=== PATIENT | male | born 1935 | race Caucasian/White ===

== ENCOUNTER 2017-04-15 11:29 | Inpatient (IN) | payer OTHER, MEDICARE ==
[~2017-04-15] VITALS: Ht 190.5 cm; Wt 114.0 kg
[~2017-04-15 11:29] MED LIST: ALPH200C3 PO; ASPI81 PO; BRIM0.155 EACH EYE; CARV12.52 PO; CO Q200C; COBA1000 SL; HYDR-2768 PO; LOSA25TA31 PO; LUTE1CAP5; LYCO10CA PO; OMEP20CA5 PO; PRAV20 PO; REST0.05 EACH EYE; SELE200T18 PO; SPIRCAP INH; TAMS0.4C67 PO; VENTAER INH
[2017-04-15 11:30] VITALS: BP 161/89; PULSE 109; RESP 24; TEMP 98.2; O2SAT 93
[2017-04-15] MEDS ORDERED: SODIUM CHLOR 0.9% 1000 ML INJ 1,000 ML IV ONE ×4 (11:45→13:00)
[2017-04-15] MEDS ORDERED: ACETAMINOPHEN 325 MG TAB PO ONE (11:45)
--- NOTE | 2017-04-15 11:50 | PD ---
HPI Chief Complaint: fever Time Seen by Provider: 11:47 Travel History International Travel<30 days: No Contact w/Intl Traveler<30days: No History of Present Illness HPI 81 YO M with PMH of HTN, GERD, BPH, AV block s/p pacemaker insertion presents to the the ED via EMS for evaluation of 3 day history of hematuria. Patient states that upon waking today he felt chills and began to shake which prompted him to call EMS. He denies CP, cough, SOB, abdominal pain, N/V. EMS reports oral temp of 102+ on scene. PCP Dr. Melo. [facility] Past Medical History Arthritis: Yes Asthma: No Blood Disorders: No Heart Rhythm Problems: No Cancer: No Cardiovascular Problems: Yes High Cholesterol: Yes Chemotherapy: No Chest Pain: No Congestive Heart Failure: No COPD: No Diabetes: No Diminished Hearing: No Endocrine: No Gastrointestinal Disorders: No GERD: Yes Glaucoma: Yes Genitourinary: Yes Hepatitis: No Hiatal Hernia: No Hypertension: Yes Immune Disorder: No Implanted Vascular Access Dvce: Yes Kidney Stones: No Musculoskeletal: Yes Neurologic: No Psychiatric: No Reproductive: No Respiratory: No (PNEUMINIA IN THE PAST) Myocardial Infarction: No Radiation Therapy: No Renal Failure: No Sleep Apnea: No Thyroid Disease: No Ulcer: No Past Surgical History Abdominal Surgery: No AICD: No Appendectomy: No Arteriovenous Shunt: No Body Medical Devices: PACEMAKER 10/10/13 Cardiac Surgery: No Cholecystectomy: No Ear Surgery: No Endocrine Surgery: No Eye Surgery: Yes (CATARACT RIGHT EYE, RIGHT EYE VITRECTOMY) Genitourinary Surgery: No Gynecologic Surgery: No Insulin Pump: No Joint Replacement: Yes (LEFT KNEE, LEFT HIP, RIGHT HIP, BILATERAL ROTATOR CUFF) Oral Surgery: No Pacemaker: No Thoracic Surgery: No Other Surgery: Yes (BILATERAL BUNIONS) Social History Alcohol Use: Yes (2-4 BEERS PER DAY) Tobacco Use: No (QUIT 1981) Substance Use: No Allergies-Medications (Allergen,Severity, Reaction): Coded Allergies: aspirin (Unverified Allergy, Severe, Anaphylaxis, 03/13/17) oxycodone (Unverified Allergy, Severe, Anaphylaxis, 03/13/17) penicillin G (Unverified Allergy, Severe, SWELLING, 03/13/17) morphine (Unverified Adverse Reaction, Severe, VOMITING, 03/13/17) SICK WITH MS PUMP Reported Meds & Prescriptions Reported Meds & Active Scripts Active Reported Ventolin Hfa 18 GM Inh (Albuterol Sulfate) 90 Mcg/Act Aer 2 Puff INH Q6H PRN Spiriva Handihaler (Tiotropium Inh) 18 Mcg Cap 18 Mcg INH DAILY 1 capsule = 18 mcg DO NOT SWALLOW CAPS Brimonidine Opth Drops (Brimonidine Tartrate) 0.2% Soln 1 Drop EACH EYE BID Aspirin Adult Low Strength (Aspirin) 81 Mg Tabdr 81 Mg PO DAILY Pravastatin 20 Mg Tab 20 Mg PO DAILY Tamsulosin (Tamsulosin HCl) 0.4 Mg Cap 0.4 Mg PO HS Coreg (Carvedilol) 12.5 Mg Tab 12.5 Mg PO BID Cozaar (Losartan Potassium) 50 Mg Tab 50 Mg PO DAILY Hydrochlorothiazide 25 Mg Tab 25 Mg PO DAILY Omeprazole 20 Mg Tab 20 Mg PO DAILY Review of Systems Except as stated in HPI: all other systems reviewed are Neg Physical Exam Narrative GENERAL: Well-nourished, well-developed obese white male, rigors, no acute distress. SKIN: Focused skin assessment warm/dry. HEAD: Normocephalic. EYES: No scleral icterus. No injection or drainage. NECK: Supple, trachea midline. No JVD or lymphadenopathy. CARDIOVASCULAR: Regular rate and rhythm without murmurs, gallops, or rubs. RESPIRATORY: Breath sounds clear and equal bilaterally. No accessory muscle use. GASTROINTESTINAL: Abdomen soft, non-tender, nondistended. No suprapubic tenderness. MUSCULOSKELETAL: No cyanosis, or edema. BACK: Nontender without obvious deformity. No CVA tenderness. Data Data Last Documented VS Vital Signs Date Time Temp Pulse Resp B/P (MAP) Pulse Ox O2 Delivery O2 Flow Rate FiO2 04/15/17 12:02 103.8 107 25 164/76 (105) 93 Nasal Cannula 2.00 Orders Orders Complete Blood Count With Diff (04/15/17 11:45) Comprehensive Metabolic Panel (04/15/17 11:45) Prothrombin Time / Inr (Pt) (04/15/17 11:45) Act Partial Throm Time (Ptt) (04/15/17 11:45) Lactic Acid Sepsis Protocol (04/15/17 11:45) Urinalysis - C+S If Indicated (04/15/17 11:45) Blood Culture (04/15/17 11:45) Chest, Single Ap (04/15/17 11:45) Blood Glucose (04/15/17 11:45) Ecg Monitoring (04/15/17 11:45) Iv Access Insert/Monitor (04/15/17 11:45) Oximetry (04/15/17 11:45) Oxygen Administration (04/15/17 11:45) Acetaminophen (Tylenol) (04/15/17 11:45) Sodium Chlor 0.9% 1000 Ml Inj (Ns 1000 M (04/15/17 11:45) Urine Culture (04/15/17 12:15) Aztreonam Inj (Azactam Inj) (04/15/17 13:00) Gentamicin Inj (Gentamicin Inj) (04/15/17 13:00) Sodium Chlor 0.9% 1000 Ml Inj (Ns 1000 M (04/15/17 13:00) Sodium Chlor 0.9% 1000 Ml Inj (Ns 1000 M (04/15/17 13:00) Sodium Chlor 0.9% 1000 Ml Inj (Ns 1000 M (04/15/17 13:00) Electrocardiogram (04/15/17 11:53) Admit Order (Ed Use Only) (04/15/17 14:12) Albuterol Hfa Inh (Proair Hfa Inh) (04/15/17 14:15) Aspirin Ec (Ecotrin Ec) (04/16/17 09:00) Brimonidine 0.2% Opth Soln (Alphagan 0.2 (04/15/17 21:00) Carvedilol (Coreg) (04/15/17 21:00) Hydrochlorothiazide (Hydrodiuril) (04/16/17 09:00) Losartan (Cozaar) (04/16/17 09:00) Pravastatin (Pravachol) (04/16/17 09:00) Tamsulosin (Flomax) (04/15/17 21:00) Tiotropium Inh (Spiriva Inh) (04/16/17 09:00) (Nf) Omeprazole (04/16/17 09:00) Labs Laboratory Tests Test 04/15/17 11:50 04/15/17 12:15 White Blood Count 8.5 TH/MM3 Red Blood Count 4.10 MIL/MM3 Hemoglobin 14.3 GM/DL Hematocrit 42.4 % Mean Corpuscular Volume 103.5 FL Mean Corpuscular Hemoglobin 34.8 PG Mean Corpuscular Hemoglobin Concent 33.6 % Red Cell Distribution Width 13.3 % Platelet Count 163 TH/MM3 Mean Platelet Volume 7.9 FL Neutrophils (%) (Auto) 94.7 % Lymphocytes (%) (Auto) 4.0 % Monocytes (%) (Auto) 1.0 % Eosinophils (%) (Auto) 0.2 % Basophils (%) (Auto) 0.1 % Neutrophils # (Auto) 8.1 TH/MM3 Lymphocytes # (Auto) 0.3 TH/MM3 Monocytes # (Auto) 0.1 TH/MM3 Eosinophils # (Auto) 0.0 TH/MM3 Basophils # (Auto) 0.0 TH/MM3 CBC Comment DIFF FINAL Differential Comment Prothrombin Time 10.7 SEC Prothromb Time International Ratio 1.0 RATIO Activated Partial Thromboplast Time 22.4 SEC Blood Urea Nitrogen 13 MG/DL Creatinine 1.18 MG/DL Random Glucose 112 MG/DL Total Protein 7.0 GM/DL Albumin 3.5 GM/DL Calcium Level 8.9 MG/DL Alkaline Phosphatase 78 U/L Aspartate Amino Transf (AST/SGOT) 68 U/L Alanine Aminotransferase (ALT/SGPT) 60 U/L Total Bilirubin 1.7 MG/DL Sodium Level 139 MEQ/L Potassium Level 3.6 MEQ/L Chloride Level 104 MEQ/L Carbon Dioxide Level 27.6 MEQ/L Anion Gap 7 MEQ/L Estimat Glomerular Filtration Rate 59 ML/MIN Lactic Acid Level 2.4 mmol/L Urine Color BROWN Urine Turbidity CLOUDY Urine pH 5.5 Urine Specific [place] 1.018 Urine Protein 100 mg/dL Urine Glucose (UA) NEG mg/dL Urine Ketones TRACE mg/dL Urine Occult Blood LARGE Urine Nitrite NEG Urine Bilirubin NEG Urine Urobilinogen LESS THAN 2.0 MG/DL Urine Leukocyte Esterase MOD Urine RBC /hpf Urine WBC 83 /hpf Urine WBC Clumps FEW Urine Bacteria MANY /hpf Microscopic Urinalysis Comment CULTURE INDICATED MDM Medical Decision Making Medical Screen Exam Complete: Yes Emergency Medical Condition: Yes Differential Diagnosis cystitis versus pyelonephritis versus urosepsis versus Narrative Course 81 YO M with PMH of HTN, GERD, BPH s/p TURP, AV block s/p pacemaker insertion presents to the the ED via EMS for evaluation of 3 day history of hematuria. Patient states that upon waking today he felt chills and began to shake which prompted him to call EMS. He denies CP, cough, SOB, abdominal pain, N/V. EMS reports oral temp of 102+ on scene. PCP Dr. Melo. Oral temp 103.8, pulse 107, respiratory rate 25, 93% on 2 L normal nasal cannula on presentation. Patient has rigors but the exam is otherwise unremarkable. Fluid resuscitation is initiated. Patient was administered by mouth Tylenol. EKG rate 98, paced rhythm. No acute ST changes. Reviewed by Dr. Miner. CXR: No acute cardio pulmonary disease per radiology read. CMP: WBCs 8.5, neutrophil predominant with bands. INR 1.0. BUN 13, creatinine 1.18. Bilirubin is 1.7 and AST is 68 but there is no abdominal pain on the exam. Lactic acid 2.4. UA: Brown, cloudy, moderate leukocyte esterase, 83 WBC's, few clumps, many bacteria. Patient was administered IV gentamicin and aztreonam. On recheck temperature 98.7, pulse 100, BP 134/59. The patient meets severe sepsis criteria and will be admitted to the medicine service. He is agreeable to this plan. I spoke with who agrees to accept the patient to the medicine service. Sepsis Criteria SIRS Criteria (2 or more): Temp > 100.9 or < 96.8, Heart rate over 90, WBC > 87789, < 4000 or > 10% bands Sepsis Criteria (SIRS+source): Infect source susp/known Severe Sepsis (+one): Lactate >2 Criteria Outcome: Meets SIRS criteria, Meets sepsis criteria, Meets severe sepsis criteria Lesia Maradiaga Apr 15, 2017 11:50
[2017-04-15 12:00] LABS: AUTOMATED NEUTROPHIL # 8.1 TH/MM3 (1.8-7.7); BASOPHIL % 0.1 % (0.0-2.0); EOSINOPHIL % 0.2 % (0.0-4.0); HEMATOCRIT 42.4 % (39.0-51.0); HEMO FLAGS DIFF FINAL; LYMPHOCYTE # 0.3 TH/MM3 (1.0-4.8); MEAN CELL VOLUME 103.5 FL (80.0-100.0); MEAN CORPUSCULAR HEMOGLOBIN 34.8 PG (27.0-34.0); MEAN CORPUSCULAR HGB CONC 33.6 % (32.0-36.0); NEUT % 94.7 % (16.0-70.0); PLATELET COUNT 163 TH/MM3 (150-450); RED CELL DISTRIBUTION WIDTH 13.3 % (11.6-17.2); WHITE BLOOD COUNT 8.5 TH/MM3 (4.0-11.0)
[2017-04-15 12:02] VITALS: BP 164/76; PULSE 107; RESP 25; TEMP 103.8; O2SAT 93
[2017-04-15 12:13] LABS: APTT (PATIENT) 22.4 SEC (24.3-30.1); PROTHROMBIN TIME - PATIENT 10.7 SEC (9.8-11.6)
[2017-04-15] MEDS ORDERED: CARV12.5 PO (12:19)
[2017-04-15] MEDS ORDERED: BRIM0.2S4 EACH EYE (12:19)
[2017-04-15] MEDS ORDERED: PRAV20TA2 PO (12:19)
[2017-04-15] MEDS ORDERED: HYDR25TA5 PO (12:19)
[2017-04-15] MEDS ORDERED: SPIRCAP INH (12:19)
[2017-04-15] MEDS ORDERED: COZA50TA PO (12:19)
[2017-04-15] MEDS ORDERED: VENTAER INH (12:19)
[2017-04-15] MEDS ORDERED: ASPI1TAB91 PO (12:19)
[2017-04-15] MEDS ORDERED: OMEP20TA PO (12:19)
[2017-04-15] MEDS ORDERED: TAMS0.4C4 PO (12:19)
[2017-04-15 12:25] LABS: ALT (GPT) 60 U/L (12-78); ANION GAP 7 MEQ/L (5-15); AST (GOT) 68 U/L (15-37); BICARBONATE 27.6 MEQ/L (21.0-32.0); BLOOD UREA NITROGEN 13 MG/DL (7-18); CHLORIDE 104 MEQ/L (98-107); GLOMERULAR FILTRATION RATE 59 ML/MIN (>89); POTASSIUM 3.6 MEQ/L (3.5-5.1); SODIUM (NA) 139 MEQ/L (136-145)
[2017-04-15 12:27] LABS: ALKALINE PHOSPHATASE 78 U/L (45-117); TOTAL BILIRUBIN ADULT 1.7 MG/DL (0.2-1.0)
--- NOTE | 2017-04-15 12:28 | RADRPT ---
EXAM DATE/TIME: 04/15/2017 11:47 [facility] COMPARISON: CHEST SINGLE AP, October 14, 2013, 9:56. INDICATIONS : Fever MEDICAL HISTORY : Cardiovascular disease. Hypertension SURGICAL HISTORY : Pacemaker. ENCOUNTER: Initial ACUITY: 1 day PAIN SCORE: 0/10 LOCATION: chest FINDINGS: A single view of the chest demonstrates the lungs to be symmetrically aerated without evidence of mas s, infiltrate or effusion. The cardiomediastinal contours are unremarkable. There is a bilead pacem linda in place from the left subclavian approach. Osseous structures are intact. CONCLUSION: No acute disease. Trey Sarah MD on April 15, 2017 at 12:26 Board Certified Radiologist. This report was verified electronically.
[2017-04-15 12:50] LABS: BACTERIA, URINE MANY /hpf; BLOOD, URINE LARGE (NEG); COMMENT (UR) CULTURE INDICATED; CULTURE IF INDICATED CULTURE INDICATED; GLUCOSE,URINE NEG (NEG); KETONE, URINE TRACE mg/dL (NEG); NITRITE,URINE NEG (NEG); PH, URINE 5.5 (5.0-8.5)
[2017-04-15 12:52] LABS: URINE COLOR BROWN (YELLW/STRAW)
[2017-04-15] MEDS ORDERED: GENTAMICIN INJ 500 MG in SODIUM CHLORIDE 0.9% INJ 100 ML IV STA (13:00)
[2017-04-15] MEDS ORDERED: AZTREONAM INJ 1,000 MG in SODIUM CHLORIDE 0.9% INJ 100 ML IV STA (13:00)
[2017-04-15 13:57] LABS: LACTIC ACID GHOST NOT REPORTABLE
[2017-04-15 14:00] VITALS: BP 126/59; PULSE 98; RESP 23; O2SAT 95
--- NOTE | 2017-04-15 14:10 | HHI.HP ---
HPI Service [facility] Primary Care Physician Bernardo Melo MD Admission Diagnosis Diagnoses: Chief Complaint: Hematuria, fever Travel History International Travel<30 Days: No Contact w/Intl Traveler <30 Da: No Traveled to Known Affected Are: No Sepsis Criteria SIRS Criteria (2 or more): Temp > 100.9 or < 96.8, Heart rate over 90, RR > 20 or PaCO2 < 32 Sepsis Criteria (SIRS+source): Infect source susp/known Severe Sepsis (+one): Lactate >2 History of Present Illness Pleasant 81-year-old male with a medical history significant for hypertension, GERD, BPH, AV block status post pacemaker placement, COPD, and skin cancer status post radiation who presented to the emergency room with complaint of hematuria for the past 3 days. The patient also endorsed dysuria, fever and chills. On arrival to the emergency room he has a temperature of 103 and his urine is grossly abnormal suggestive of UTI. Patient currently denies nausea or vomiting. No chest pain or shortness of breath. Review of Systems Constitutional: COMPLAINS OF: Fever, Chills Respiratory: DENIES: Cough, Shortness of breath Gastrointestinal: DENIES: Nausea, Vomiting Genitourinary: COMPLAINS OF: Hematuria, Dysuria Except as stated in HPI: all other systems reviewed are Neg Past Family Social History Past Medical History hypertension, GERD, BPH, AV block status post pacemaker placement, COPD, and skin cancer status post radiation Past Surgical History left knee replacement bilateral hip replacement bilateral shoulder replacement Reported Medications Reported Meds & Active Scripts Active Reported Ventolin Hfa 18 GM Inh (Albuterol Sulfate) 90 Mcg/Act Aer 2 Puff INH Q6H PRN Spiriva Handihaler (Tiotropium Inh) 18 Mcg Cap 18 Mcg INH DAILY 1 capsule = 18 mcg DO NOT SWALLOW CAPS Brimonidine Opth Drops (Brimonidine Tartrate) 0.2% Soln 1 Drop EACH EYE BID Aspirin Adult Low Strength (Aspirin) 81 Mg Tabdr 81 Mg PO DAILY Pravastatin 20 Mg Tab 20 Mg PO DAILY Tamsulosin (Tamsulosin HCl) 0.4 Mg Cap 0.4 Mg PO HS Coreg (Carvedilol) 12.5 Mg Tab 12.5 Mg PO BID Cozaar (Losartan Potassium) 50 Mg Tab 50 Mg PO DAILY Hydrochlorothiazide 25 Mg Tab 25 Mg PO DAILY Omeprazole 20 Mg Tab 20 Mg PO DAILY Allergies: Coded Allergies: aspirin (Unverified Allergy, Severe, Anaphylaxis, 03/13/17) oxycodone (Unverified Allergy, Severe, Anaphylaxis, 03/13/17) penicillin G (Unverified Allergy, Severe, SWELLING, 03/13/17) morphine (Unverified Adverse Reaction, Severe, VOMITING, 03/13/17) SICK WITH MS PUMP Family History Father from complications of heart disease Mother from a stroke. Social History Patient quit using tobacco way back in 1981 He drinks 2 beers daily. He denies any history of alcohol withdrawals. Physical Exam Vital Signs Vital Signs Date Time Temp Pulse Resp B/P (MAP) Pulse Ox O2 Delivery O2 Flow Rate FiO2 04/15/17 12:02 103.8 107 25 164/76 (105) 93 Nasal Cannula 2.00 04/15/17 11:30 98.2 109 24 161/89 (113) 93 Nasal Cannula 2.00 04/15/17 11:30 98.2 109 24 161/89 (113) 93 04/15/17 11:30 93 Nasal Cannula 2.00 Physical Exam CONSTITUTIONAL/GENERAL: Obese male in no apparent distress. Vital signs reviewed SKIN: No jaundice, rashes, or concerning lesions. Not diaphoretic. HEAD: Atraumatic. Normocephalic. EYES: Pupils equal and round and reactive. Extra ocular motions are intact. No scleral icterus. No injection or drainage. ENT: Hearing grossly normal. Nose without drainage. Throat without visible erythema, exudates, masses, or lesions. NECK: Trachea midline. Neck is supple, non-tender. No palpable thyroid enlargement or nodularity. CARDIOVASCULAR: Normal rate and regular rhythm without murmurs, gallops, or rubs. No JVD. Peripheral pulses 2+ and symmetric. RESPIRATORY/CHEST: Symmetric, unlabored respirations. Breath sounds equal and clear to auscultation bilaterally. No wheezes, crackles, rales, or rhonchi. GASTROINTESTINAL: Abdomen soft, non-tender, non-distended. No hepato- splenomegaly, or palpable masses. No guarding. Bowel sounds present. MUSCULOSKELETAL: Extremities without clubbing, cyanosis, or edema. No joint tenderness or effusion noted. No calf tenderness. No mottling or clubbing. NEUROLOGICAL: Awake and alert. Motor and sensory grossly within normal limits. Follows commands. Move all extremities spontaneously. No focal deficits. PSYCHIATRIC: No obvious mood problems. No apparent hallucinations or other psychotic thought process. Laboratory Laboratory Tests Test 04/15/17 11:50 04/15/17 12:15 White Blood Count 8.5 Red Blood Count 4.10 Hemoglobin 14.3 Hematocrit 42.4 Mean Corpuscular Volume 103.5 Mean Corpuscular Hemoglobin 34.8 Mean Corpuscular Hemoglobin Concent 33.6 Red Cell Distribution Width 13.3 Platelet Count 163 Mean Platelet Volume 7.9 Neutrophils (%) (Auto) 94.7 Lymphocytes (%) (Auto) 4.0 Monocytes (%) (Auto) 1.0 Eosinophils (%) (Auto) 0.2 Basophils (%) (Auto) 0.1 Neutrophils # (Auto) 8.1 Lymphocytes # (Auto) 0.3 Monocytes # (Auto) 0.1 Eosinophils # (Auto) 0.0 Basophils # (Auto) 0.0 CBC Comment DIFF FINAL Differential Comment Prothrombin Time 10.7 Prothromb Time International Ratio 1.0 Activated Partial Thromboplast Time 22.4 Blood Urea Nitrogen 13 Creatinine 1.18 Random Glucose 112 Total Protein 7.0 Albumin 3.5 Calcium Level 8.9 Alkaline Phosphatase 78 Aspartate Amino Transf (AST/SGOT) 68 Alanine Aminotransferase (ALT/SGPT) 60 Total Bilirubin 1.7 Sodium Level 139 Potassium Level 3.6 Chloride Level 104 Carbon Dioxide Level 27.6 Anion Gap 7 Estimat Glomerular Filtration Rate 59 Lactic Acid Level 2.4 Urine Color BROWN Urine Turbidity CLOUDY Urine pH 5.5 Urine Specific [place] 1.018 Urine Protein 100 Urine Glucose (UA) NEG Urine Ketones TRACE Urine Occult Blood LARGE Urine Nitrite NEG Urine Bilirubin NEG Urine Urobilinogen LESS THAN 2.0 Urine Leukocyte Esterase MOD Urine RBC Urine WBC 83 Urine WBC Clumps FEW Urine Bacteria MANY Microscopic Urinalysis Comment CULTURE INDICATED Date/Time Source Procedure Growth Status 04/15/17 11:50 Blood Peripheral Aerobic Blood Culture Pending Received 04/15/17 11:50 Blood Peripheral Anaerobic Blood Culture Pending Received 04/15/17 12:15 Urine Clean Catch Urine Culture Pending Received Result Diagram: 04/15/17 1150 04/15/17 1150 Imaging Last Impressions Chest X-Ray 04/15/17 1145 Signed Impressions: Service Date/Time: Saturday, April 15, 2017 11:47 - CONCLUSION: No acute disease. MD Meka Mg VTE Risk Assessment Meka VTE Risk Assessment: Mod/High Risk (score >= 2) VTE Pharm Contraindication: Active bleeding Caprini Risk Assessment Model Point Value = 1 Point Value = 2 Point Value = 3 Point Value = 5 Age 41-60 Minor surgery BMI > 25 kg/m2 Swollen legs Varicose veins or History of unexplained or recurrent spontaneous Oral contraceptives or hormone replacement Sepsis (< 1 month) Serious lung disease, including pneumonia (< 1 month) Abnormal pulmonary function Acute myocardial infarction Congestive heart failure (< 1 month) History of inflammatory bowel disease Medical patient at bed rest Age 61-74 Arthroscopic surgery Major open surgery (> 45 min) Laparoscopic surgery (> 45 min) Malignancy Confined to bed (> 72 hours) Immobilizing plaster cast Central venous access Age >= 75 History of VTE Family history of VTE Factor V Leiden Prothrombin [id number] Lupus anticoagulant Anticardiolipin antibodies Elevated serum homocysteine Heparin-induced thrombocytopenia Other congenital or acquired thrombophilia Stroke (< 1 month) Elective arthroplasty Hip, pelvis, or leg fracture Acute spinal cord injury (< 1 month) Prophylaxis Regimen Total Risk Factor Score Risk Level Prophylaxis Regimen 0-1 Low Early ambulation 2 Moderate Order ONE of the following: *Sequential Compression Device (SCD) *Heparin 5000 units SQ BID 3-4 Higher Order ONE of the following medications: *Heparin 5000 units SQ TID *Enoxaparin/Lovenox 40 mg SQ daily (WT < 150 kg, CrCl > 30 mL/min) *Enoxaparin/Lovenox 30 mg SQ daily (WT < 150 kg, CrCl > 10-29 mL/min) *Enoxaparin/Lovenox 30 mg SQ BID (WT < 150 kg, CrCl > 30 mL/min) AND/OR *Sequential Compression Device (SCD) 5 or more Highest Order ONE of the following medications: *Heparin 5000 units SQ TID (Preferred with Epidurals) *Enoxaparin/Lovenox 40 mg SQ daily (WT < 150 kg, CrCl > 30 mL/min) *Enoxaparin/Lovenox 30 mg SQ daily (WT < 150 kg, CrCl > 10-29 mL/min) *Enoxaparin/Lovenox 30 mg SQ BID (WT < 150 kg, CrCl > 30 mL/min) AND *Sequential Compression Device (SCD) Assessment and Plan Problem List: (1) Sepsis secondary to UTI ICD Code: A41.9 - Sepsis, unspecified organism; N39.0 - Urinary tract infection , site not specified (2) Hematuria ICD Code: R31.9 - Hematuria, unspecified (3) BPH (benign prostatic hyperplasia) ICD Code: N40.0 - Benign prostatic hyperplasia without lower urinary tract symptoms (4) Hypertension ICD Code: I10 - Essential (primary) hypertension (5) COPD (chronic obstructive pulmonary disease) ICD Code: J44.9 - Chronic obstructive pulmonary disease, unspecified Assessment and Plan 81-year-old male admitted for Severe Sepsis secondary to UTI: Fever 103, tachycardic and tachypneic on admission with a lactic acid of over 2. Source is UTI. - Patient has allergy to penicillin but previously received Ancef without reported issues. - Treated with cefepime 2 g IV every 12 hours. Follow urine and blood cultures. - IV fluid Hematuria: Likely related to above. Patient has a known history of BPH. He is voiding. - Obtain bladder and renal ultrasound - Continue to monitor. If no improvement will consult urology versus outpatient follow-up with his urologist. - Continue Flomax - Follow H&H COPD: Not in exacerbation. Continue chronic home medications. Breathing treatments and supplemental oxygen as needed. Hypertension, history of AV block status post pacemaker placement: - Continue Coreg, losartan, and HCTZ. GERD: Continue PPI GI prophylaxis: PPI. Stool softener PRN constipation. DVT PPx: SCDs. Chemical prophylaxis contraindicated given hematuria. Discussed Condition With ER staff Physician Certification 2 Midnight Certification Type: Admission for Inpatient Services Order for Inpatient Services The services are ordered in accordance with Medicare regulations or non- Medicare payer requirements, as applicable. In the case of services not specified as inpatient-only, they are appropriately provided as inpatient services in accordance with the 2-midnight benchmark. Estimated LOS (days): 3 days is the estimated time the patient will need to remain in the hospital, assuming treatment plan goals are met and no additional complications. Post-Hospital Plan: Not yet determined Darline Meeks MD Apr 15, 2017 14:10
[2017-04-15] MEDS ORDERED: SODIUM CHLOR 0.9% 1000 ML INJ 1,000 ML IV SCH (14:13)
[2017-04-15] MEDS ORDERED: LACTULOSE SYRUP 20 GM/30 ML CUP PO PRN (14:15)
[2017-04-15] MEDS ORDERED: NALOXONE HCL 0.4 MG/ML AMP IV PUSH PRN (14:15)
[2017-04-15] MEDS ORDERED: MAGNESIUM HYDROXIDE SUSP 30 ML CUP PO PRN (14:15)
[2017-04-15] MEDS ORDERED: BISACODYL 10 MG SUPP RECTAL PRN (14:15)
[2017-04-15] MEDS ORDERED: SENNOSIDES 8.6 MG TAB PO PRN (14:15)
[2017-04-15] MEDS ORDERED: ONDANSETRON HCL 4 MG/2 ML VIAL IVP PRN (14:15)
[2017-04-15] MEDS ORDERED: SODIUM CHLORIDE 0.9% FLUSH 10 ML FLUSH IV FLUSH PRN (14:15)
[2017-04-15 15:01] VITALS: BP 125/60; PULSE 99; RESP 26; TEMP 101.5; O2SAT 96
[2017-04-15] MEDS ORDERED: IBUPROFEN 800 MG TAB PO ONE (15:15)
--- NOTE | 2017-04-15 16:24 | RADRPT ---
EXAM DATE/TIME: 04/15/2017 15:24 [facility] COMPARISON: No previous studies available for comparison. INDICATIONS : Hematuria. MEDICAL HISTORY : Hypertension. Hypercholesterolemia. Gastroesophageal reflux disease. Dysuria. BPH. SURGICAL HISTORY : Cataract removal. Bilateral rotator cuff repair. Bilateral hip surgery. Left knee surgery. ENCOUNTER: Initial ACUITY: 3 days PAIN SCORE: 6/10 LOCATION: Bilateral flank MEASUREMENTS: RIGHT KIDNEY: 10.1 x 6.9 x 5.0 cm LEFT KIDNEY: 12.7 x 6.2 x 6.1 cm FINDINGS: RIGHT KIDNEY: Renal cortex is normal in thickness and echotexture. Suspected 4 x 9 mm nonobstructing mid zone calc ulus. No hydronephrosis or mass. LEFT KIDNEY: Renal cortex is normal in thickness and echotexture. No hydronephrosis, stone or or mass. BLADDER: No acute abnormality demonstrated. CONCLUSION: 1. Suspected nonobstructing stone of the right kidney. 2. Otherwise within normal limits. No obstructive uropathy, mass or perceptible parenchymal changes. Trey Jalloh MD on April 15, 2017 at 16:21 Board Certified Radiologist. This report was verified electronically.
[2017-04-15] MEDS: ACETAMINOPHEN 325 MG TAB PO PRN (17:22)
[2017-04-15 18:00] VITALS: BP 136/64; PULSE 77; RESP 18; TEMP 98.2; O2SAT 96
--- NOTE | 2017-04-15 19:18 | EKG ---
Date Performed: 04/15/2017 Time Performed: 11:53:00 PTAGE: 81 years EKG: ELECTRONIC VENTRICULAR PACEMAKER ABNORMAL RHYTHM ECG PREVIOUS TRACING : 04/15/2017 11.52 No significant change from previous tracing noted. DOCTOR: Luis Alfredo Moore Interpretating Date/Time 04/15/2017 19:17:21
[2017-04-15 20:00] VITALS: BP 129/59; PULSE 70; RESP 18; TEMP 96.6; O2SAT 95
[2017-04-15] MEDS: BRIMONIDINE TARTRATE 0.2% OPHT SOLN 5 ML BTL EACH EYE SCH (21:01)
[2017-04-15] MEDS: CARVEDILOL 12.5 MG TAB PO SCH (21:02)
[2017-04-15] MEDS: SODIUM CHLORIDE 0.9% FLUSH 10 ML FLUSH IV FLUSH SCH (21:02)
[2017-04-15] MEDS: TAMSULOSIN HCL 0.4 MG CAP PO SCH (21:02)
[2017-04-15] MEDS: CEFEPIME INJ 2,000 MG in SODIUM CHLORIDE 0.9% INJ 100 ML IV SCH (21:02)
[2017-04-15] MEDS ORDERED: diphenhydrAMINE HCL 25 MG CAP PO ONE (21:45)
[2017-04-16] VITALS: BP 144/67; PULSE 60; RESP 18; TEMP 96.7; O2SAT 98
[2017-04-16 06:11] LABS: AUTOMATED NEUTROPHIL # 13.8 TH/MM3 (1.8-7.7); BASOPHIL % 0.1 % (0.0-2.0); EOSINOPHIL % 0.2 % (0.0-4.0); HEMATOCRIT 38.3 % (39.0-51.0); HEMO FLAGS DIFF FINAL; LYMPH % 4.3 % (9.0-44.0); LYMPHOCYTE # 0.7 TH/MM3 (1.0-4.8); MEAN CELL VOLUME 105.2 FL (80.0-100.0); MEAN CORPUSCULAR HEMOGLOBIN 34.4 PG (27.0-34.0); MEAN CORPUSCULAR HGB CONC 32.7 % (32.0-36.0); MONO % 8.1 % (0.0-8.0); NEUT % 87.3 % (16.0-70.0); PLATELET COUNT 141 TH/MM3 (150-450); RED BLOOD COUNT 3.64 MIL/MM3 (4.50-5.90); RED CELL DISTRIBUTION WIDTH 13.6 % (11.6-17.2); WHITE BLOOD COUNT 15.9 TH/MM3 (4.0-11.0)
[2017-04-16 06:34] LABS: ALKALINE PHOSPHATASE 62 U/L (45-117); ALT (GPT) 72 U/L (12-78); ANION GAP 7 MEQ/L (5-15); AST (GOT) 79 U/L (15-37); BICARBONATE 25.5 MEQ/L (21.0-32.0); BLOOD UREA NITROGEN 17 MG/DL (7-18); CHLORIDE 108 MEQ/L (98-107); GLOMERULAR FILTRATION RATE 63 ML/MIN (>89); POTASSIUM 3.5 MEQ/L (3.5-5.1); SODIUM (NA) 140 MEQ/L (136-145); TOTAL BILIRUBIN ADULT 1.9 MG/DL (0.2-1.0)
[2017-04-16 08:00] VITALS: BP 144/71; PULSE 60; RESP 20; TEMP 97.3; O2SAT 98
[2017-04-16] MEDS: CARVEDILOL 12.5 MG TAB PO SCH ×2 (08:38→20:01)
[2017-04-16] MEDS: LOSARTAN 50 MG TAB PO SCH (08:38)
[2017-04-16] MEDS: BRIMONIDINE TARTRATE 0.2% OPHT SOLN 5 ML BTL EACH EYE SCH ×2 (08:38→20:02)
[2017-04-16] MEDS: PANTOPRAZOLE SOD 20 MG DELAYED RELEASE TAB PO SCH (08:38)
[2017-04-16] MEDS: PRAVASTATIN SOD 20 MG TAB PO SCH (08:38)
[2017-04-16] MEDS: HYDROCHLOROTHIAZIDE 25 MG TAB PO SCH (08:38)
[2017-04-16] MEDS: TIOTROPIUM BROMIDE 18 MCG INH INH SCH (08:38)
[2017-04-16] MEDS: CEFEPIME INJ 2,000 MG in SODIUM CHLORIDE 0.9% INJ 100 ML IV SCH (08:38)
[2017-04-16] MEDS: SODIUM CHLORIDE 0.9% FLUSH 10 ML FLUSH IV FLUSH SCH ×2 (08:42→20:01)
[2017-04-16] MEDS ORDERED: ASPIRIN EC 81 MG TABEC PO SCH (09:00)
--- NOTE | 2017-04-16 10:35 | HHI.PR ---
Subjective Remarks Patient reports feeling much better. No more chills or fevers. Urine is clearing up. Objective Vitals Vital Signs Date Time Temp Pulse Resp B/P (MAP) Pulse Ox O2 Delivery O2 Flow Rate FiO2 04/16/17 08:00 97.3 60 20 144/71 (95) 98 04/16/17 00:00 96.7 60 18 144/67 (92) 98 04/15/17 20:00 96.6 70 18 129/59 (82) 95 04/15/17 18:00 98.2 77 18 136/64 (88) 96 04/15/17 17:25 04/15/17 15:01 101.5 99 26 125/60 (81) 96 04/15/17 14:00 98 23 126/59 (81) 95 Nasal Cannula 2.00 04/15/17 12:02 103.8 107 25 164/76 (105) 93 Nasal Cannula 2.00 04/15/17 11:30 98.2 109 24 161/89 (113) 93 Nasal Cannula 2.00 04/15/17 11:30 98.2 109 24 161/89 (113) 93 04/15/17 11:30 93 Nasal Cannula 2.00 I/O 04/15/17 04/15/17 04/15/17 04/16/17 04/16/17 04/16/17 07:00 15:00 23:00 07:00 15:00 23:00 Intake Total 2100 ml 100 ml Output Total 300 ml Balance 2100 ml 100 ml -300 ml Intake IV Total 2100 ml 100 ml Output Urine Total 300 ml Result Diagram: 04/16/17 0530 04/16/17 0530 Imaging Last Impressions Chest X-Ray 04/15/17 1145 Signed Impressions: Service Date/Time: Saturday, April 15, 2017 11:47 - CONCLUSION: No acute disease. Trey Sarah MD Renal Ultrasound 04/15/17 0000 Signed Impressions: Service Date/Time: Saturday, April 15, 2017 15:24 - CONCLUSION: 1. Suspected nonobstructing stone of the right kidney. 2. Otherwise within normal limits. No obstructive uropathy, mass or perceptible parenchymal changes. Trey Jalloh MD Objective Remarks GENERAL: This is a well-nourished, well-developed patient, in no apparent distress. CARDIOVASCULAR: Normal rate and regular rhythm without murmurs, gallops, or rubs. RESPIRATORY: Good respiratory efforts. Breath sounds equal and clear to auscultation bilaterally. GASTROINTESTINAL: Abdomen soft, non-tender, non-distended. Normal active bowel sounds MUSCULOSKELETAL: Extremities without cyanosis, or edema. NEURO: Alert & Oriented x4 to person, place, time, situation. Moves all ext x4 PSYCH: Appropriate mood and affect. A/P Problem List: (1) Sepsis secondary to UTI ICD Code: A41.9 - Sepsis, unspecified organism; N39.0 - Urinary tract infection , site not specified (2) Hematuria ICD Code: R31.9 - Hematuria, unspecified (3) BPH (benign prostatic hyperplasia) ICD Code: N40.0 - Benign prostatic hyperplasia without lower urinary tract symptoms (4) Hypertension ICD Code: I10 - Essential (primary) hypertension (5) COPD (chronic obstructive pulmonary disease) ICD Code: J44.9 - Chronic obstructive pulmonary disease, unspecified Assessment and Plan 81-year-old male admitted for severe sepsis secondary to UTI, blood cultures now positive for gram-negative rods. Severe Sepsis secondary to UTI/Bacteremia: - Patient has allergy to penicillin but previously received Ancef without reported issues. - Continue with cefepime 2 g IV every 12 hours. Clinically improving. Follow urine and blood cultures. - IV fluid - Consult ID given bacteremia. Hematuria: Likely related to above. Patient has a known history of BPH. He follows with Dr. Kumar regularly and also has had intermittent hematuria. - Renal and bladder ultrasound unremarkable except for nonobstructing stone. Patient prefer to follow up outpatient with his urologist. If hematuria persists or not improving here I advised him we would consult urology here. - Continue Flomax - Follow H&H Elevated LFTs: Probably shocked liver from sepsis. Continue to follow. COPD: Not in exacerbation. Continue chronic home medications. Breathing treatments and supplemental oxygen as needed. Hypertension, history of AV block status post pacemaker placement: - Continue Coreg, losartan, and HCTZ. GERD: Continue PPI GI prophylaxis: PPI. Stool softener PRN constipation. DVT PPx: SCDs. Chemical prophylaxis contraindicated given hematuria. Darline Meeks MD Apr 16, 2017 10:35
[2017-04-16 12:00] VITALS: BP 166/78; PULSE 73; RESP 18; TEMP 97.5; O2SAT 94
[2017-04-16] MEDS: POTASSIUM CHLORIDE INJ 10 MEQ in SODIUM CHLOR 0.9% 1000 ML INJ 1,000 ML IV SCH (14:40)
[2017-04-16] MEDS: ACETAMINOPHEN 325 MG TAB PO PRN (14:47)
[2017-04-16 16:00] VITALS: BP 141/63; PULSE 93; RESP 18; TEMP 100.6; O2SAT 93
[2017-04-16] MEDS: AZTREONAM INJ 2,000 MG in SODIUM CHLORIDE 0.9% INJ 100 ML IV SCH (17:22)
[2017-04-16] MEDS: LEVOFLOXACIN 750 MG PREMIX INJ 150 ML IV SCH (17:22)
[2017-04-16 20:00] VITALS: BP 150/67; PULSE 79; RESP 18; TEMP 98.4; O2SAT 93
[2017-04-16] MEDS: TAMSULOSIN HCL 0.4 MG CAP PO SCH (20:01)
--- NOTE | 2017-04-16 20:08 | MB ---
cc: BETINA BRADFORD MD DATE OF CONSULTATION 04/16/[address] Mckeon. REASON FOR CONSULTATION Gram-negative bacteremia. HISTORY OF PRESENT ILLNESS This is an 81-year-old white male who presented to the emergency department on 04/15/2017 with fever. The patient developed hematuria along with fever and chills before presenting to the emergency department. The patient has a history of periodic hematuria. He was evaluated in the emergency department and had temperature of 103.8 degrees and heart rate of 107, respiratory rate of 25 and lactic acid level 2.4. Culture of the urine has gram-negative ariane and the blood culture has gram-negative ariane in four bottles including one identified as Klebsiella pneumonia. His white count jumped from 8.5 to 15.9 today. He has periodic shaking chills. He was given intravenous gentamicin and aztreonam yesterday in emergency department and then was started on cefepime after that. The patient feels somewhat short of breath currently. He has history of COPD. His temperature today is normal. He has some low back pain but states that it is not unusual for him. He also currently has a headache. He denies neck stiffness. Ultrasound of the kidneys shows nonobstructing stone of the right kidney. Chest x-ray shows no acute disease. The patient denies nausea or vomiting or diarrhea. He notes that he had dysuria along with the fever and chills on presentation. PAST MEDICAL HISTORY 1. Hypertension. 2. Benign prostatic hypertrophy. 3. Gastroesophageal reflux disease. 4. Pacemaker implantation. 5. COPD. 6. Transurethral resection of prostate. 7. Left knee replacement. 8. Bilateral hip replacements. 9. Bilateral shoulder replacement. ALLERGIES PENICILLIN, OXYCODONE, MORPHINE. MEDICATIONS 1. Cefepime. 2. Tylenol. 3. Hydrochlorothiazide. 4. Cozaar. 5. Pravachol. 6. Spiriva. 7. Protonix. 8. Ecotrin. 9. Coreg. 10. Flomax. SOCIAL HISTORY The patient is . No tobacco. Positive alcohol use in the form of beer daily. No illicit drugs. FAMILY HISTORY Noncontributory. REVIEW OF SYSTEMS CONSTITUTIONAL: Positive for fever and chills. HEENT: No visual blurring. No difficulty with vision. Denies nasal bleeding. Denies difficulty swallowing or soreness of the throat. NECK: Denies neck pain or swelling. CARDIOVASCULAR: Denies palpitation or chest pain. RESPIRATORY: Positive shortness of breath. Denies cough. GASTROINTESTINAL: Denies nausea, vomiting or abdominal pain. GENITOURINARY: Positive for dysuria. INTEGUMENT: Denies skin rash or itching. MUSCULOSKELETAL: Denies muscle pains or joint aches. ENDOCRINE: Denies polyuria or polydipsia. HEMATOLOGIC: Positive the hematuria. NEUROLOGIC: Denies problems with coordination or dizziness. PHYSICAL EXAMINATION GENERAL: This is a moderately obese male who is in no acute distress. He is awake and alert and oriented. VITAL SIGNS: Temperature 97.5, BP 166/78, respirations 18, heart rate 73. HEENT: Head is atraumatic. Extraocular movements grossly intact, pupils reactive to light. No icterus. Oropharynx no visible lesions. NECK: Supple. No adenopathy. LUNGS: Clear, decreased breath sounds throughout. HEART: Regular S1-S2 without murmurs. ABDOMEN: Bowel sounds present, diminished however, soft, no tenderness appreciated. RECTAL: Not performed. EXTREMITIES: No clubbing, cyanosis or edema. SKIN: No rash. NEUROLOGIC: No gross focal findings. PSYCHIATRIC: The patient calm and cooperative. LABORATORY DATA WBC 15.9, platelets 141, 87% neutrophils, hemoglobin 12.5. Creatinine 1.12, BUN 17, sodium 140, AST 79, ALT 72. IMPRESSION 1. Gram-negative sepsis due to urinary tract infection. 2. Urinary tract infection due to gram-negative bacteria. 3. Leukocytosis. RECOMMENDATIONS 1. Discontinue cefepime. 2. Begin aztreonam. 3. Add Levaquin. 4. Monitor the sensitivity of the Klebsiella. 5. Monitor the white blood cell count. 6. Monitor clinical status. Thank you for this consultation. The patient's progress will be followed and further recommendations will be given upon followup if necessary. Betina Bradford MD FD/JEN /3:02 PM /7:32 PM [facility]Summer
[2017-04-16] MEDS ORDERED: diphenhydrAMINE HCL 25 MG CAP PO ONE (21:15)
[2017-04-16] MEDS ORDERED: ACETAMINOPHEN 325 MG TAB PO ONE (21:15)
[2017-04-17] VITALS: BP 143/67; PULSE 76; RESP 18; TEMP 97.2; O2SAT 91
[2017-04-17] MEDS: AZTREONAM INJ 2,000 MG in SODIUM CHLORIDE 0.9% INJ 100 ML IV SCH ×3 (00:50→16:19)
[2017-04-17] MEDS: POTASSIUM CHLORIDE INJ 10 MEQ in SODIUM CHLOR 0.9% 1000 ML INJ 1,000 ML IV SCH ×4 (00:50→16:20)
[2017-04-17] MEDS: ALBUTEROL SULFATE 90 MCG/ACT HFA 8 GM INHALER INH PRN (06:25)
[2017-04-17 06:40] VITALS: BP 159/75; PULSE 90; O2SAT 91
[2017-04-17] MEDS ORDERED: ACETAMINOPHEN/HYDROcodone 325 MG/5 MG TAB PO SCH (06:45)
[2017-04-17] MEDS: PRAVASTATIN SOD 20 MG TAB PO SCH (07:45)
[2017-04-17] MEDS: PANTOPRAZOLE SOD 20 MG DELAYED RELEASE TAB PO SCH (07:45)
[2017-04-17] MEDS: SODIUM CHLORIDE 0.9% FLUSH 10 ML FLUSH IV FLUSH SCH ×2 (07:45→19:39)
[2017-04-17] MEDS: LOSARTAN 50 MG TAB PO SCH (07:45)
[2017-04-17] MEDS: HYDROCHLOROTHIAZIDE 25 MG TAB PO SCH (07:45)
[2017-04-17] MEDS: CARVEDILOL 12.5 MG TAB PO SCH ×2 (07:45→19:39)
[2017-04-17] MEDS: BRIMONIDINE TARTRATE 0.2% OPHT SOLN 5 ML BTL EACH EYE SCH ×2 (07:46→19:40)
[2017-04-17] MEDS: TIOTROPIUM BROMIDE 18 MCG INH INH SCH (07:46)
[2017-04-17 07:51] LABS: HEMATOCRIT 39.6 % (39.0-51.0); MEAN CELL VOLUME 104.6 FL (80.0-100.0); MEAN CORPUSCULAR HEMOGLOBIN 35.6 PG (27.0-34.0); PLATELET COUNT 131 TH/MM3 (150-450); RED BLOOD COUNT 3.78 MIL/MM3 (4.50-5.90); RED CELL DISTRIBUTION WIDTH 13.6 % (11.6-17.2); REVIEW FLAG FINAL; WHITE BLOOD COUNT 10.6 TH/MM3 (4.0-11.0)
[2017-04-17 08:00] VITALS: BP 158/73; PULSE 83; RESP 17; TEMP 98.9; O2SAT 90
[2017-04-17 08:26] LABS: BICARBONATE 23.1 MEQ/L (21.0-32.0); POTASSIUM 3.6 MEQ/L (3.5-5.1)
[2017-04-17 08:30] LABS: INDIRECT BILIRUBIN 0.8 MG/DL (0.0-0.8); TOTAL BILIRUBIN ADULT 1.4 MG/DL (0.2-1.0)
--- NOTE | 2017-04-17 09:02 | HHI.PR ---
Subjective Remarks Patient reports he is still having a persistent headache. Melber did not help. No fevers or chills. Urine has cleared up. Objective Vitals Vital Signs Date Time Temp Pulse Resp B/P (MAP) Pulse Ox O2 Delivery O2 Flow Rate FiO2 04/17/17 08:00 98.9 83 17 158/73 (101) 90 04/17/17 06:40 90 159/75 (103) 91 04/17/17 00:00 97.2 76 18 143/67 (92) 91 04/16/17 20:00 98.4 79 18 150/67 (94) 93 04/16/17 16:00 100.6 93 18 141/63 (89) 93 04/16/17 12:00 97.5 73 18 166/78 (107) 94 I/O 04/16/17 04/16/17 04/16/17 04/17/17 04/17/17 04/17/17 07:00 15:00 23:00 07:00 15:00 23:00 Intake Total 480 ml 1167 ml Output Total 300 ml 750 ml 200 ml 100 ml Balance -300 ml -270 ml 967 ml -100 ml Intake Oral 480 ml IV Total 1167 ml Output Urine Total 300 ml 750 ml 200 ml 100 ml # Bowel Movements 0 Result Diagram: 04/17/1763704/17/17637 Objective Remarks GENERAL: This is a well-nourished, well-developed patient, in no apparent distress. CARDIOVASCULAR: Normal rate and regular rhythm without murmurs, gallops, or rubs. RESPIRATORY: Good respiratory efforts. Breath sounds equal and clear to auscultation bilaterally. GASTROINTESTINAL: Abdomen soft, non-tender, non-distended. Normal active bowel sounds MUSCULOSKELETAL: Extremities without cyanosis, or edema. NEURO: Alert & Oriented x4 to person, place, time, situation. Moves all ext x4 PSYCH: Appropriate mood and affect. A/P Problem List: (1) Sepsis secondary to UTI ICD Code: A41.9 - Sepsis, unspecified organism; N39.0 - Urinary tract infection , site not specified (2) Hematuria ICD Code: R31.9 - Hematuria, unspecified (3) BPH (benign prostatic hyperplasia) ICD Code: N40.0 - Benign prostatic hyperplasia without lower urinary tract symptoms (4) Hypertension ICD Code: I10 - Essential (primary) hypertension (5) COPD (chronic obstructive pulmonary disease) ICD Code: J44.9 - Chronic obstructive pulmonary disease, unspecified Assessment and Plan 81-year-old male admitted for severe sepsis secondary to UTI, blood cultures now positive for gram-negative rods. Severe Sepsis secondary to UTI/Klebsiella Bacteremia: - Patient has allergy to penicillin but previously received Ancef without reported issues. - ID following, antibiotics changed to Azactam and Levaquin. Clinically improving. Follow urine and blood cultures. - IV fluid Hematuria: Resolved. Likely related to above. Patient has a known history of BPH. He follows with Dr. Kumar regularly and also has had intermittent hematuria. - Renal and bladder ultrasound unremarkable except for nonobstructing stone. Patient prefer to follow up outpatient with his urologist. If hematuria persists or not improving here I advised him we would consult urology here. - Continue Flomax - Follow H&H Elevated LFTs: Probably shocked liver from sepsis. Improving Continue to follow. COPD: Not in exacerbation. Continue chronic home medications. Breathing treatments and supplemental oxygen as needed. Hypertension, history of AV block status post pacemaker placement: - Continue Coreg, losartan, and HCTZ. GERD: Continue PPI GI prophylaxis: PPI. Stool softener PRN constipation. DVT PPx: SCDs. Chemical prophylaxis contraindicated given hematuria. Darline Meeks MD Apr 17, 2017 09:02
[2017-04-17 12:00] VITALS: BP 163/68; PULSE 70; RESP 17; TEMP 97.7; O2SAT 91
--- NOTE | 2017-04-17 13:09 | HHI.IDPN ---
Note Infectious Disease Note Patient feels better. Had chills and VALLE last night. Very little sleep last night due to VALLE and urinary frequency. Afebrile. The patient developed hematuria along with fever and chills before presenting to the emergency department. PAST MEDICAL HISTORY 1. Hypertension. 2. Benign prostatic hypertrophy. 3. Gastroesophageal reflux disease. 4. Pacemaker implantation. 5. COPD. 6. Transurethral resection of prostate. 7. Left knee replacement. 8. Bilateral hip replacements. 9. Bilateral shoulder replacement. ALLERGIES PENICILLIN, OXYCODONE, MORPHINE. ANTIBIOTICS: Azactam. Levaquin. SOCIAL HISTORY The patient is . No tobacco. Positive alcohol use in the form of beer daily. No illicit drugs. FAMILY HISTORY Noncontributory. OBJECTIVE: Vital Signs Date Time Temp Pulse Resp B/P (MAP) Pulse Ox O2 Delivery O2 Flow Rate FiO2 04/17/17 12:00 97.7 70 17 163/68 (99) 91 04/17/17 08:00 98.9 83 17 158/73 (101) 90 04/17/17 06:40 90 159/75 (103) 91 04/17/17 00:00 97.2 76 18 143/67 (92) 91 04/16/17 20:00 98.4 79 18 150/67 (94) 93 04/16/17 16:00 100.6 93 18 141/63 (89) 93 Laboratory Tests Test 04/16/17 05:30 04/17/17 06:38 White Blood Count 15.9 TH/MM3 10.6 TH/MM3 Red Blood Count 3.64 MIL/MM3 3.78 MIL/MM3 Hemoglobin 12.5 GM/DL 13.5 GM/DL Hematocrit 38.3 % 39.6 % Mean Corpuscular Volume 105.2 FL 104.6 FL Mean Corpuscular Hemoglobin 34.4 PG 35.6 PG Mean Corpuscular Hemoglobin Concent 32.7 % 34.0 % Red Cell Distribution Width 13.6 % 13.6 % Platelet Count 141 TH/MM3 131 TH/MM3 Mean Platelet Volume 8.0 FL 8.9 FL Neutrophils (%) (Auto) 87.3 % Lymphocytes (%) (Auto) 4.3 % Monocytes (%) (Auto) 8.1 % Eosinophils (%) (Auto) 0.2 % Basophils (%) (Auto) 0.1 % Neutrophils # (Auto) 13.8 TH/MM3 Lymphocytes # (Auto) 0.7 TH/MM3 Monocytes # (Auto) 1.3 TH/MM3 Eosinophils # (Auto) 0.0 TH/MM3 Basophils # (Auto) 0.0 TH/MM3 CBC Comment DIFF FINAL Differential Comment Laboratory Tests Test 04/16/17 05:30 04/17/17 06:38 Blood Urea Nitrogen 17 MG/DL 15 MG/DL Creatinine 1.12 MG/DL 1.10 MG/DL Random Glucose 123 MG/DL 111 MG/DL Total Protein 5.7 GM/DL 6.5 GM/DL Albumin 2.8 GM/DL 2.9 GM/DL Calcium Level 7.6 MG/DL 8.0 MG/DL Alkaline Phosphatase 62 U/L 72 U/L Aspartate Amino Transf (AST/SGOT) 79 U/L 60 U/L Alanine Aminotransferase (ALT/SGPT) 72 U/L 64 U/L Total Bilirubin 1.9 MG/DL 1.4 MG/DL Sodium Level 140 MEQ/L 137 MEQ/L Potassium Level 3.5 MEQ/L 3.6 MEQ/L Chloride Level 108 MEQ/L 106 MEQ/L Carbon Dioxide Level 25.5 MEQ/L 23.1 MEQ/L Anion Gap 7 MEQ/L 8 MEQ/L Estimat Glomerular Filtration Rate 63 ML/MIN 64 ML/MIN Direct Bilirubin 0.6 MG/DL Indirect Bilirubin 0.8 MG/DL Microbiology Date/Time Source Procedure Growth Status 04/15/17 11:50 Blood Peripheral Aerobic Blood Culture - Preliminary Klebsiella Pneumoniae Resulted 04/15/17 11:50 Anaerobic Blood Culture - Preliminary Klebsiella Pneumoniae Resulted 04/15/17 11:45 Blood Peripheral Aerobic Blood Culture - Preliminary Klebsiella Pneumoniae Resulted 04/15/17 11:45 Anaerobic Blood Culture - Preliminary Klebsiella Pneumoniae Resulted 04/15/17 12:15 Urine Clean Catch Urine Culture - Final Klebsiella Pneumoniae Complete PHYSICAL EXAMINATION GENERAL: No acute distress. He is awake and alert and oriented. HEENT: Head is atraumatic. Extraocular movements grossly intact, pupils reactive to light. No icterus. Oropharynx no visible lesions. NECK: Supple. No adenopathy. LUNGS: Decreased breath sounds and mild wheezing. HEART: Regular S1-S2 without murmurs. ABDOMEN: Soft, no tenderness appreciated. EXTREMITIES: No clubbing, cyanosis or edema. SKIN: No rash. NEUROLOGIC: No gross focal findings. PSYCHIATRIC: Calm, pleasant and cooperative. IMPRESSION 1. Klebsiella sepsis due to urinary tract infection. 2. Urinary tract infection due Klebsiella. . 3. Leukocytosis. 4. PCN allergy. RECOMMENDATIONS 1. Continue aztreonam. 2. Stop Levaquin. 3. Monitor the white blood cell count. 4. Monitor clinical status. Dylan Amin MD Apr 17, 2017 13:09
[2017-04-17] MEDS: LEVOFLOXACIN 750 MG PREMIX INJ 150 ML IV SCH (15:10)
[2017-04-17] MEDS: ACETAMIN 325 MG/BUTALBITAL 50 MG/CAFFEINE 40 MG TAB PO PRN ×2 (15:10→21:44)
[2017-04-17 16:00] VITALS: BP 157/73; PULSE 83; RESP 17; TEMP 96.5; O2SAT 92
[2017-04-17] MEDS: TAMSULOSIN HCL 0.4 MG CAP PO SCH (19:39)
[2017-04-17 20:00] VITALS: BP 157/69; PULSE 75; RESP 18; TEMP 97.9; O2SAT 94
[2017-04-17] MEDS: ZOLPIDEM TARTRATE 5 MG TAB PO PRN (21:44)
[2017-04-18] VITALS: BP 144/75; PULSE 74; RESP 18; TEMP 98.4; O2SAT 92
[2017-04-18] MEDS: AZTREONAM INJ 2,000 MG in SODIUM CHLORIDE 0.9% INJ 100 ML IV SCH ×3 (01:43→17:52)
[2017-04-18] MEDS: POTASSIUM CHLORIDE INJ 10 MEQ in SODIUM CHLOR 0.9% 1000 ML INJ 1,000 ML IV SCH ×2 (02:52→14:42)
[2017-04-18 07:17] LABS: HEMATOCRIT 36.6 % (39.0-51.0); MEAN CORPUSCULAR HEMOGLOBIN 34.8 PG (27.0-34.0); MEAN CORPUSCULAR HGB CONC 33.5 % (32.0-36.0); PLATELET COUNT 129 TH/MM3 (150-450); RED BLOOD COUNT 3.52 MIL/MM3 (4.50-5.90); RED CELL DISTRIBUTION WIDTH 13.4 % (11.6-17.2); REVIEW FLAG FINAL; WHITE BLOOD COUNT 5.3 TH/MM3 (4.0-11.0)
[2017-04-18 07:36] LABS: POTASSIUM 3.3 MEQ/L (3.5-5.1)
[2017-04-18 07:47] LABS: INDIRECT BILIRUBIN 0.5 MG/DL (0.0-0.8); TOTAL BILIRUBIN ADULT 1.1 MG/DL (0.2-1.0)
[2017-04-18 08:00] VITALS: BP 167/87; PULSE 72; RESP 17; TEMP 98; O2SAT 95
[2017-04-18] MEDS: CARVEDILOL 12.5 MG TAB PO SCH ×2 (08:46→20:31)
[2017-04-18] MEDS: LOSARTAN 50 MG TAB PO SCH (08:46)
[2017-04-18] MEDS: PANTOPRAZOLE SOD 20 MG DELAYED RELEASE TAB PO SCH (08:46)
[2017-04-18] MEDS: HYDROCHLOROTHIAZIDE 25 MG TAB PO SCH (08:46)
[2017-04-18] MEDS: SODIUM CHLORIDE 0.9% FLUSH 10 ML FLUSH IV FLUSH SCH ×2 (08:47→20:31)
[2017-04-18] MEDS: PRAVASTATIN SOD 20 MG TAB PO SCH (08:47)
[2017-04-18] MEDS: BRIMONIDINE TARTRATE 0.2% OPHT SOLN 5 ML BTL EACH EYE SCH ×2 (08:49→20:31)
[2017-04-18] MEDS: TIOTROPIUM BROMIDE 18 MCG INH INH SCH (08:49)
[2017-04-18 12:00] VITALS: BP 185/82; PULSE 66; RESP 18; TEMP 97.9; O2SAT 94
--- NOTE | 2017-04-18 15:42 | HHI.IDPN ---
Note Infectious Disease Note Patient feels better. No longer has chills. Afebrile. Notes burning on urination. The patient developed hematuria along with fever and chills before presenting to the emergency department. PAST MEDICAL HISTORY 1. Hypertension. 2. Benign prostatic hypertrophy. 3. Gastroesophageal reflux disease. 4. Pacemaker implantation. 5. COPD. 6. Transurethral resection of prostate. 7. Left knee replacement. 8. Bilateral hip replacements. 9. Bilateral shoulder replacement. ALLERGIES PENICILLIN, OXYCODONE, MORPHINE. ANTIBIOTICS: Azactam. SOCIAL HISTORY The patient is . No tobacco. Positive alcohol use in the form of beer daily. No illicit drugs. OBJECTIVE: Vital Signs Date Time Temp Pulse Resp B/P (MAP) Pulse Ox O2 Delivery O2 Flow Rate FiO2 04/18/17 12:00 97.9 66 18 185/82 (116) 94 04/18/17 08:00 98.0 72 17 167/87 (113) 95 04/18/17 00:00 98.4 74 18 144/75 (98) 92 04/17/17 20:00 97.9 75 18 157/69 (98) 94 04/17/17 16:00 96.5 83 17 157/73 (101) 92 Laboratory Tests Test 04/17/17 06:38 04/18/17 05:43 White Blood Count 10.6 TH/MM3 5.3 TH/MM3 Red Blood Count 3.78 MIL/MM3 3.52 MIL/MM3 Hemoglobin 13.5 GM/DL 12.2 GM/DL Hematocrit 39.6 % 36.6 % Mean Corpuscular Volume 104.6 FL 104.0 FL Mean Corpuscular Hemoglobin 35.6 PG 34.8 PG Mean Corpuscular Hemoglobin Concent 34.0 % 33.5 % Red Cell Distribution Width 13.6 % 13.4 % Platelet Count 131 TH/MM3 129 TH/MM3 Mean Platelet Volume 8.9 FL 8.5 FL Laboratory Tests Test 04/17/17 06:38 04/18/17 05:43 Blood Urea Nitrogen 15 MG/DL 12 MG/DL Creatinine 1.10 MG/DL 0.81 MG/DL Random Glucose 111 MG/DL 108 MG/DL Total Protein 6.5 GM/DL 6.0 GM/DL Albumin 2.9 GM/DL 2.6 GM/DL Calcium Level 8.0 MG/DL 8.0 MG/DL Alkaline Phosphatase 72 U/L 68 U/L Aspartate Amino Transf (AST/SGOT) 60 U/L 60 U/L Alanine Aminotransferase (ALT/SGPT) 64 U/L 57 U/L Total Bilirubin 1.4 MG/DL 1.1 MG/DL Direct Bilirubin 0.6 MG/DL 0.6 MG/DL Sodium Level 137 MEQ/L 137 MEQ/L Potassium Level 3.6 MEQ/L 3.3 MEQ/L Chloride Level 106 MEQ/L 105 MEQ/L Carbon Dioxide Level 23.1 MEQ/L 24.0 MEQ/L Anion Gap 8 MEQ/L 8 MEQ/L Estimat Glomerular Filtration Rate 64 ML/MIN 91 ML/MIN Indirect Bilirubin 0.8 MG/DL 0.5 MG/DL PHYSICAL EXAMINATION GENERAL: No acute distress. Awake, alert and oriented. HEENT: No icterus. Oropharynx no visible lesions. NECK: Supple. No adenopathy. LUNGS: Decreased breath sounds and mild wheezing. HEART: Regular S1-S2 without murmurs. ABDOMEN: Soft, (+) bowel sounds. No tenderness. EXTREMITIES: No clubbing, cyanosis or edema. SKIN: No rash. NEUROLOGIC: No gross focal findings. PSYCHIATRIC: Calm, pleasant and cooperative. IMPRESSION 1. Klebsiella sepsis due to urinary tract infection. 2. Urinary tract infection due Klebsiella. 3. Leukocytosis. improved. 4. PCN allergy. RECOMMENDATIONS 1. Continue aztreonam. 2. PIC line. Plan on using Ertapenem IV outpatient. Once daily dosing. Antibiotic IV until . Dylan Amin MD Apr 18, 2017 15:42
--- NOTE | 2017-04-18 15:49 | HHI.FF ---
Infusion Therapy Location of Infusion Therapy: [facility] IV Infusion Order Patient Information Patient Weight 113.5 kg Diagnosis: Coded Allergies: oxycodone (Unverified Allergy, Severe, Anaphylaxis, 03/13/17) penicillin G (Unverified Allergy, Severe, SWELLING, 03/13/17) morphine (Unverified Adverse Reaction, Severe, VOMITING, 03/13/17) SICK WITH MS PUMP Administer Medication Ertapenem 1 gram IV q 24 hours Stop Treatment: Apr 25, 2017 Additional Information Venous access: PICC Line Additional Instructions [x] Peripheral flush and dressing changes per protocol [x] Implanted port and central supervisor facepiece line: * Implanted port: 10 ml Normal Saline followed by 5 ml Heparin 100 units/ml Heparin flush after each use and monthly to maintain. [] May leave port accessed during therapy. [] May leave peripheral site accessed for duration of therapy. [x] If patient has SOB or respiratory distress, check oxygen saturation. If less than 90% or clinical signs of respiratory distress, administer oxygen at 2 L/min. via nasal cannula and notify physician. [x] Anaphylaxis/Reaction orders: * Stop infusion. * Keep IV line open with saline flush. * Notify physician. * Monitor vital signs every 15 minutes until symptoms resolve. * Check Oxygen saturation; Oxygen at 2 L/min. via nasal cannula if less than 90% or clinical signs of respiratory distress. * Administer diphenhydramine (Benadryl) 25 mg IV STAT, (unless patient has received as pre-med). May repeat once, if necessary. * Solu-Cortef 250 mg IVP over 30-60 seconds, use 100 mg vials for each dissolution. * Epinephrine (1mg/1 ml) 0.3 mg subcutaneously or IVP now with any signs of respiratory distress. * Check with physician for new additional pre-med orders if patient is re- challenged or re-treated. [x] May remove PICC line when treatment complete, after confirming with Physician. [x] If the patient is admitted to the hospital, the ED, or transferred via [facility] , complete transfer form including medication reconciliation order sheet. Laboratory Tests Weekly Labs: BMP, LFT's (Hepatic function test) Dylan Amin MD Apr 18, 2017 15:49
[2017-04-18 16:00] VITALS: BP 169/85; PULSE 81; RESP 17; TEMP 97.5; O2SAT 94
[2017-04-18] MEDS: TAMSULOSIN HCL 0.4 MG CAP PO SCH (20:31)
[2017-04-18] MEDS: ALBUTEROL SULFATE 90 MCG/ACT HFA 8 GM INHALER INH PRN (20:31)
[2017-04-18] MEDS: ZOLPIDEM TARTRATE 5 MG TAB PO PRN (20:32)
[2017-04-18 20:40] VITALS: BP 157/74; PULSE 78; RESP 21; TEMP 98.6; O2SAT 94
[2017-04-19 00:40] VITALS: BP 158/82; PULSE 80; RESP 20; TEMP 97.9; O2SAT 97
--- NOTE | 2017-04-19 00:43 | HHI.PR ---
Subjective Remarks Late entry - patien seen on 04/18 at 7 pm Patient has no complints denies fevers or chills Objective Vitals Vital Signs Date Time Temp Pulse Resp B/P (MAP) Pulse Ox O2 Delivery O2 Flow Rate FiO2 04/18/17 20:40 98.6 78 21 157/74 (101) 94 04/18/17 16:00 97.5 81 17 169/85 (113) 94 04/18/17 12:00 97.9 66 18 185/82 (116) 94 04/18/17 08:00 98.0 72 17 167/87 (113) 95 I/O 04/18/17 04/18/17 04/18/17 04/19/17 04/19/17 04/19/17 06:59 14:59 22:59 06:59 14:59 22:59 Intake Total 1085 ml 480 ml Output Total 600 ml 550 ml Balance 485 ml -70 ml Intake Oral 480 ml IV Total 1085 ml Output Urine Total 600 ml 550 ml # Bowel Movements 0 Result Diagram: 04/18/17 0543 04/18/17 0543 Imaging Last Impressions Chest X-Ray 04/15/17 1145 Signed Impressions: Service Date/Time: Saturday, April 15, 2017 11:47 - CONCLUSION: No acute disease. Trey Sarah MD Renal Ultrasound 04/15/17 0000 Signed Impressions: Service Date/Time: Saturday, April 15, 2017 15:24 - CONCLUSION: 1. Suspected nonobstructing stone of the right kidney. 2. Otherwise within normal limits. No obstructive uropathy, mass or perceptible parenchymal changes. Trey Jalloh MD Objective Remarks AAOx3 nad Clear lungs BL S1S2 RRR no MRG A/P Problem List: (1) Sepsis secondary to UTI ICD Code: A41.9 - Sepsis, unspecified organism; N39.0 - Urinary tract infection , site not specified (2) Hematuria ICD Code: R31.9 - Hematuria, unspecified (3) BPH (benign prostatic hyperplasia) ICD Code: N40.0 - Benign prostatic hyperplasia without lower urinary tract symptoms (4) Hypertension ICD Code: I10 - Essential (primary) hypertension (5) COPD (chronic obstructive pulmonary disease) ICD Code: J44.9 - Chronic obstructive pulmonary disease, unspecified Assessment and Plan 81-year-old male admitted for severe sepsis secondary to UTI, blood cultures now positive for gram-negative rods. Severe Sepsis secondary to UTI/Klebsiella Bacteremia: - Patient has allergy to penicillin but previously received Ancef without reported issues. - ID following, antibiotics changed to Azactam and Levaquin. Clinically improving. Follow urine and blood cultures. - 04/18 Sepsis resolving - DC IV fluids. The patient is sp PICC line placement. ID recommends Ertapenem IV as an outpatient. Hematuria: Resolved. Likely related to above. Patient has a known history of BPH. He follows with Dr. Kumar regularly and also has had intermittent hematuria. - Renal and bladder ultrasound unremarkable except for nonobstructing stone. Patient prefer to follow up outpatient with his urologist. If hematuria persists or not improving here I advised him we would consult urology here. - Continue Flomax - Follow H&H Elevated LFTs: Probably shocked liver from sepsis. Improving Continue to follow. COPD: Not in exacerbation. Continue chronic home medications. Breathing treatments and supplemental oxygen as needed. Hypertension, history of AV block status post pacemaker placement: - Continue Coreg, losartan, and HCTZ. 04/18 BP uncontrolled. DC IV fluids and increase Coreg to 25 mg po BID. GERD: Continue PPI GI prophylaxis: PPI. Stool softener PRN constipation. DVT PPx: SCDs. Chemical prophylaxis contraindicated given hematuria. Kofi Stewart MD Apr 19, 2017 00:43
[2017-04-19] MEDS: AZTREONAM INJ 2,000 MG in SODIUM CHLORIDE 0.9% INJ 100 ML IV SCH ×2 (00:51→11:02)
[2017-04-19 08:00] VITALS: BP 172/79; PULSE 68; RESP 17; TEMP 97.7; O2SAT 95
[2017-04-19] MEDS: SODIUM CHLORIDE 0.9% FLUSH 10 ML FLUSH IV FLUSH SCH (09:00)
[2017-04-19] MEDS: PRAVASTATIN SOD 20 MG TAB PO SCH (09:00)
[2017-04-19] MEDS: BRIMONIDINE TARTRATE 0.2% OPHT SOLN 5 ML BTL EACH EYE SCH (09:00)
[2017-04-19] MEDS: LOSARTAN 50 MG TAB PO SCH (10:54)
[2017-04-19] MEDS: PANTOPRAZOLE SOD 20 MG DELAYED RELEASE TAB PO SCH (10:54)
[2017-04-19] MEDS: CARVEDILOL 12.5 MG TAB PO SCH (10:54)
[2017-04-19] MEDS: HYDROCHLOROTHIAZIDE 25 MG TAB PO SCH (10:57)
[2017-04-19] MEDS: TIOTROPIUM BROMIDE 18 MCG INH INH SCH (10:59)
--- NOTE | 2017-04-19 11:39 | HHI.FF ---
Face to Face Verification Diagnosis: (1) COPD (chronic obstructive pulmonary disease) (2) Hematuria (3) Hypertension (4) BPH (benign prostatic hyperplasia) (5) Sepsis secondary to UTI Physical Therapy Order: Evaluate and Treat Home Health Nursing Order: Nursing assessment with vital signs IV medication administration I have seen patient Stephon Flores on 04/19/17. My clinical findings support the need for the requested home health care services because: Infection w/ risk of complications I certify that my clinical findings support that this patient is homebound because: Hx COPD- exertion dyspnea/weakness Unsafe to leave home unassisted Unable to use public transportation Kofi Stewart MD Apr 19, 2017 11:39
[2017-04-19 12:00] VITALS: BP 170/91; PULSE 70; RESP 18; TEMP 98.2; O2SAT 95
[2017-04-19] MEDS ORDERED: LOSARTAN 50 MG TAB PO ONE (12:00)
--- NOTE | 2017-04-19 14:43 | HHI.PR ---
Subjective Remarks bp still high denies cp/sob denies headache and dizziness wants to go home Objective Vitals Vital Signs Date Time Temp Pulse Resp B/P (MAP) Pulse Ox O2 Delivery O2 Flow Rate FiO2 04/19/17 12:00 98.2 70 18 170/91 (117) 95 04/19/17 08:00 97.7 68 17 172/79 (110) 95 04/19/17 00:40 97.9 80 20 158/82 (107) 97 04/18/17 20:40 98.6 78 21 157/74 (101) 94 04/18/17 16:00 97.5 81 17 169/85 (113) 94 I/O 04/18/17 04/18/17 04/18/17 04/19/17 04/19/17 04/19/17 07:00 15:00 23:00 07:00 15:00 23:00 Intake Total 1085 ml 480 ml 680 ml Output Total 600 ml 550 ml 1200 ml Balance 485 ml -70 ml -520 ml Intake Oral 480 ml 480 ml IV Total 1085 ml 200 ml Output Urine Total 600 ml 550 ml 1200 ml # Bowel Movements 0 Result Diagram: 04/18/17 0543 04/18/17 0543 Imaging Last Impressions Chest X-Ray 04/15/17 1145 Signed Impressions: Service Date/Time: Saturday, April 15, 2017 11:47 - CONCLUSION: No acute disease. Trey Sarah MD Renal Ultrasound 04/15/17 0000 Signed Impressions: Service Date/Time: Saturday, April 15, 2017 15:24 - CONCLUSION: 1. Suspected nonobstructing stone of the right kidney. 2. Otherwise within normal limits. No obstructive uropathy, mass or perceptible parenchymal changes. Trey Jalloh MD Objective Remarks AAOx3 nad Clear lungs BL S1S2 RRR no MRG Medications and IVs Current Medications Medications (Trade) Dose Ordered Sig/Clay Route Start Time Stop Time Status Last Admin (Proair Hfa Inh) 2 puff Q6H PRN INH 04/15/17 14:15 04/18/17 20:31 (Alphagan 0.2% Opth Soln) 1 drop BID EACH EYE 04/15/17 21:00 04/19/17 09:00 (Hydrodiuril) 25 mg DAILY PO 04/16/17 09:00 04/19/17 10:57 (Pravachol) 20 mg DAILY PO 04/16/17 09:00 04/19/17 09:00 (Flomax) 0.4 mg HS PO 04/15/17 21:00 04/18/17 20:31 (Spiriva Inh) 18 mcg DAILY INH 04/16/17 09:00 04/19/17 10:59 (Protonix) 20 mg DAILY PO 04/16/17 09:00 04/19/17 10:54 (NS Flush) 2 ml UNSCH PRN IV FLUSH 04/15/17 14:15 (NS Flush) 2 ml BID IV FLUSH 04/15/17 21:00 04/19/17 09:00 (Tylenol) 650 mg Q4H PRN PO 04/15/17 14:15 04/16/17 14:47 (Zofran Inj) 4 mg Q6H PRN IVP 04/15/17 14:15 (Narcan Inj) 0.4 mg UNSCH PRN IV PUSH 04/15/17 14:15 (Milk Of Magnesia Liq) 30 ml Q12H PRN PO 04/15/17 14:15 04/17/17 12:31 (Senokot) 17.2 mg Q12H PRN PO 04/15/17 14:15 04/17/17 06:08 (Dulcolax Supp) 10 mg DAILY PRN RECTAL 04/15/17 14:15 (Lactulose Liq) 30 ml DAILY PRN PO 04/15/17 14:15 Aztreonam 2000 mg/ Sodium Chloride 100 ml @ 200 mls/hr Q8H IV 04/16/17 17:00 04/19/17 11:02 (Fioricet 325-50-40) 1 tab Q6H PRN PO 04/17/17 13:15 04/17/17 21:44 (Ambien) 5 mg HS PRN PO 04/17/17 13:30 04/18/17 20:32 (Coreg) 25 mg BID PO 04/18/17 21:00 04/19/17 10:54 (Cozaar) 100 mg DAILY PO 04/20/17 09:00 A/P Problem List: (1) Sepsis secondary to UTI ICD Code: A41.9 - Sepsis, unspecified organism; N39.0 - Urinary tract infection , site not specified (2) Hematuria ICD Code: R31.9 - Hematuria, unspecified (3) BPH (benign prostatic hyperplasia) ICD Code: N40.0 - Benign prostatic hyperplasia without lower urinary tract symptoms (4) Hypertension ICD Code: I10 - Essential (primary) hypertension (5) COPD (chronic obstructive pulmonary disease) ICD Code: J44.9 - Chronic obstructive pulmonary disease, unspecified Assessment and Plan 81-year-old male admitted for severe sepsis secondary to UTI, blood cultures now positive for gram-negative rods. Severe Sepsis secondary to UTI/Klebsiella Bacteremia: - Patient has allergy to penicillin but previously received Ancef without reported issues. - ID following, antibiotics changed to Azactam and Levaquin. Clinically improving. Follow urine and blood cultures. - 04/18 Sepsis resolving - DC IV fluids. The patient is sp PICC line placement. ID recommends Ertapenem IV as an outpatient. - 04/19 Sepsis resolved. Hematuria: Resolved. Likely related to above. Patient has a known history of BPH. He follows with Dr. Kumar regularly and also has had intermittent hematuria. - Renal and bladder ultrasound unremarkable except for nonobstructing stone. Patient prefer to follow up outpatient with his urologist. If hematuria persists or not improving here I advised him we would consult urology here. - Continue Flomax - Follow H&H Elevated LFTs: Probably shocked liver from sepsis. Improving Continue to follow. COPD: Not in exacerbation. Continue chronic home medications. Breathing treatments and supplemental oxygen as needed. Hypertension, history of AV block status post pacemaker placement: - Continue Coreg, losartan, and HCTZ. 04/18 BP uncontrolled. DC IV fluids and increase Coreg to 25 mg po BID. 04/19 BP still uncontrolled and severely elevated with sbp of 170. Increase losartan to 100 mg po daily and continue coreg at 25 mg po bid. discussed case with RN who will give now the patient's blood pressure medications which have not been given earlier. GERD: Continue PPI GI prophylaxis: PPI. Stool softener PRN constipation. DVT PPx: SCDs. Chemical prophylaxis contraindicated given hematuria. Discharge Planning Possible DC later today if SBP <155 systolic. Kofi Stewart MD Apr 19, 2017 14:43
[2017-04-19] MEDS ORDERED: COZA50TA PO (14:45)
[2017-04-19] MEDS ORDERED: CARV12.5 PO (14:45)
[2017-04-19 15:41] VITALS: BP 155/74; PULSE 66; RESP 18; O2SAT 97
[2017-04-20] MEDS ORDERED: LOSARTAN 50 MG TAB PO SCH (09:00)
== END 2017-04-19 16:23 | disposition home health service (06) | DRG 871 ==
LOC: NEPE 11:29 → NEDA 14:14 → N07B 17:37
PROVIDERS: ADMIT Internal Medicine; ATTEND Internal Medicine
DX: A41.59 Other Gram-negative sepsis (principal); K72.00 Acute and subacute hepatic failure without coma; N39.0 Urinary tract infection, site not specified; J44.9 Chronic obstructive pulmonary disease, unspecified; I10 Essential (primary) hypertension; K21.9 Gastro-esophageal reflux disease without esophagitis; N40.0 Benign prostatic hyperplasia without lower urinary tract symptoms; I44.30 Unspecified atrioventricular block; Z95.0 Presence of cardiac pacemaker; Z85.828 Personal history of other malignant neoplasm of skin; Z92.3 Personal history of irradiation; E78.00 Pure hypercholesterolemia, unspecified; H40.9 Unspecified glaucoma; B96.1 Klebsiella pneumoniae [K. pneumoniae] as the cause of diseases classified elsewhere; N20.0 Calculus of kidney; Z87.891 Personal history of nicotine dependence; Z96.611 Presence of right artificial shoulder joint; Z96.612 Presence of left artificial shoulder joint; Z96.643 Presence of artificial hip joint, bilateral; Z96.652 Presence of left artificial knee joint; M19.90 Unspecified osteoarthritis, unspecified site
CPT/HCPCS: 36569; 71010; 76775; 76937; 80048; 80053; 80076; 81001; 83605; 85025; 85027; 85610; 85730; 87040; 87077; 87086; 87186; 87205; 93005; 94150; 96361; 96365; J0692; J1580; J1956; J3480; J7030